=== PATIENT | female | born 1955 | race African-American/Black ===

== ENCOUNTER 2019-03-17 05:41 | Emergency (ER) | payer OTHER, MEDICARE ==
[~2019-03-17] VITALS: Ht 172.7 cm; Wt 122.5 kg
--- NOTE | 2019-03-17 06:22 | PHYS DOC ---
Past Medical History Additional Past Medical Histor: sleep apnea Past Surgical History: Cholecystectomy Additional Past Surgical Histo: LEFT ROTATOR CUFF,PART. THYROIDECTOMY Smoking: Cigarettes (The patient is a nonsmoker.) Alcohol Use: Rarely Drug Use: None Adult General Chief Complaint Chief Complaint: DIZZY/LIGHT HEADED HPI HPI Patient is a 63-year-old female who presents to the emergency department for evaluation. She states that yesterday morning, she began experiencing dizziness. She describes the dizziness as a sense of rotation, and is present only when laying flat. Position changes, or going from a laying to a sitting position does not affect the patient's symptoms. She denies any headache, any pain, any vision changes, any hearing changes, tinnitus, numbness, or weakness. She took a meclizine [id number] about an hour and a half ago, with some improvement in her symptoms at this time. There are no other alleviating or exacerbating factors to her symptoms. Review of Systems Review of Systems Constitutional: Denies fever or chills [] Eyes: Denies change in visual acuity, redness, or eye pain [] HENT: Denies nasal congestion or sore throat [] Respiratory: Denies cough or shortness of breath [] Cardiovascular: The patient denies any shortness of breath, chest pain, palpitations, or orthopnea [] GI: Denies abdominal pain, nausea, vomiting, bloody stools or diarrhea [] : Denies dysuria or hematuria [] Musculoskeletal: Denies back pain or joint pain [] Integument: Denies rash or skin lesions [] Neurologic: Denies headache, focal weakness or sensory changes [] Endocrine: Denies polyuria or polydipsia [] All other systems were reviewed and found to be within normal limits, except as documented in this note. Current Medications Current Medications Current Medications Medications (Trade) Dose Ordered Sig/Geno Start Time Stop Time Status Last Admin Dose Admin Lorazepam (Ativan Inj) 0.5 mg 1X ONCE 03/17/19 06:30 03/17/19 06:31 DC 03/17/19 06:41 0.5 MG Sodium Chloride 1,000 ml @ 1,000 mls/hr Q1H 03/17/19 06:30 03/17/19 07:29 DC 03/17/19 06:41 1,000 MLS/HR Allergies Allergies Allergies Coded Allergies Type Severity Reaction Last Updated Verified No Known Drug Allergies 12/14/14 No Physical Exam Physical Exam PHYSICAL EXAM: CONSTITUTIONAL: Well developed, well nourished HEAD: normocephalic, atraumatic EENT: PERRL, EOMI. there is no nystagmus. Conjunctivae normal color, sclerae non -icteric; moist mucous membranes. Tympanic membranes are normal bilaterally. NECK: Supple, non-tender; no meningismus. LUNGS: Lungs CTA, breathing even and unlabored. Normal air movement. HEART: Regular rate and rhythm, no murmur CHEST: No deformity; non-tender ABDOMEN: The abdomen is soft, and non-tender, no masses or bruits. EXTREM: Normal ROM; no deformity, no calf tenderness. Normal pulses palpable in all extremities. There is no pedal edema. SKIN: No rash; no diaphoresis NEURO: Alert; normal speech and cognition; CN's grossly intact; strength grossly intact without focal deficit. Sensation is intact in all extremities. Fiotqi-fzzk-eecfkh and heel cristobal testing is normal. Visual bah are intact by confrontation. BACK: No CVA TTP. Current Patient Data Vital Signs Vital Signs Date Time Temp Pulse Resp B/P (MAP) Pulse Ox O2 Delivery O2 Flow Rate FiO2 03/17/19 06:49 68 98 03/17/19 05:45 98.1 17 164/94 (117) Room Air 98.1 Lab Values Laboratory Tests Test 03/17/19 06:25 03/17/19 06:48 Sodium Level 142 mmol/L (136-145) Potassium Level 3.8 mmol/L (3.5-5.1) Chloride Level 107 mmol/L (98-107) Carbon Dioxide Level 27 mmol/L (21-32) Anion Gap 8 (6-14) Blood Urea Nitrogen 11 mg/dL (7-20) Creatinine 1.1 mg/dL (0.6-1.0) H Estimated GFR (Cockcroft-Gault) 60.3 BUN/Creatinine Ratio 10 (6-20) Glucose Level 86 mg/dL (70-99) Calcium Level 9.1 mg/dL (8.5-10.1) Total Bilirubin 0.4 mg/dL (0.2-1.0) Aspartate Amino Transferase (AST) 13 U/L (15-37) L Alanine Aminotransferase (ALT) 19 U/L (14-59) Alkaline Phosphatase 65 U/L (46-116) Troponin I Quantitative < 0.017 ng/mL (0.000-0.055) Total Protein 7.3 g/dL (6.4-8.2) Albumin 3.7 g/dL (3.4-5.0) Albumin/Globulin Ratio 1.0 (1.0-1.7) Thyroid Stimulating Hormone (TSH) 2.617 uIU/mL (0.358-3.74) Free Thyroxine 1.00 ng/dL (0.76-1.46) White Blood Count 6.4 x10^3/uL (4.0-11.0) Red Blood Count 4.92 x10^6/uL (3.50-5.40) Hemoglobin 13.0 g/dL (12.0-15.5) Hematocrit 39.3 % (36.0-47.0) Mean Corpuscular Volume 80 fL (79-100) Mean Corpuscular Hemoglobin 26 pg (25-35) Mean Corpuscular Hemoglobin Concent 33 g/dL (31-37) Red Cell Distribution Width 13.7 % (11.5-14.5) Platelet Count 311 x10^3/uL (140-400) Neutrophils (%) (Auto) 58 % (31-73) Lymphocytes (%) (Auto) 27 % (24-48) Monocytes (%) (Auto) 8 % (0-9) Eosinophils (%) (Auto) 7 % (0-3) H Basophils (%) (Auto) 1 % (0-3) Neutrophils # (Auto) 3.7 x10^3/uL (1.8-7.7) Lymphocytes # (Auto) 1.7 x10^3/uL (1.0-4.8) Monocytes # (Auto) 0.5 x10^3/uL (0.0-1.1) Eosinophils # (Auto) 0.4 x10^3/uL (0.0-0.7) Basophils # (Auto) 0.0 x10^3/uL (0.0-0.2) Laboratory Tests 03/17/19 06:48 Laboratory Tests 03/17/19 06:25 EKG EKG []Normal sinus rhythm at a rate of 83 beats for minute, left axis deviation, normal intervals. There are no acute ischemic ST/T changes Radiology/Procedures Radiology/Procedures PROCEDURE: CT HEAD WO CONTRAST INDICATION: Dizziness COMPARISON: None. TECHNIQUE: Axial CT images obtained through the head without intravenous contrast. One or more of the following individualized dose reduction techniques were utilized for this examination: 1. Automated exposure control; 2. Adjustment of the mA and/or kV according to patient size; 3. Use of iterative reconstruction technique. FINDINGS: No intracranial hemorrhage. No midline shift. Basal cisterns patent. Ventricles and sulci are unremarkable. No acute osseous abnormality. Orbits and paranasal sinuses unremarkable. IMPRESSION: * No acute intracranial hemorrhage. * Scattered foci of low density of the white matter. Nonspecific but can be seen with chronic small vessel ischemic disease. This is a common finding. [] Course & Med Decision Making Course & Med Decision Making Pertinent Labs and Imaging studies reviewed. (See chart for details) []7:40 AM: The patient's condition remained stable, she is feeling better, her symptoms have resolved, and her gait is stable. I discussed test results, the need for close follow-up, and return precautions. Dragon Disclaimer Dragon Disclaimer This electronic medical record was generated, in whole or in part, using a voice recognition dictation system. Departure Departure Impression: Primary Impression: Dizziness Disposition: 01 HOME, SELF-CARE Condition: STABLE Referrals: BRI LOU (PCP) ROSA SIMS MD Patient Instructions: Dizziness, Vertigo Additional Instructions: Continue taking the meclizine 25 mg every 6 hours as needed for dizziness. Return to medical care for any new or worsening symptoms, development of vision changes, headache, numbness, weakness, or any other concerning symptoms. KATTY PATEL MD Mar 17, 2019 06:22
[2019-03-17] MEDS ORDERED: IV NORMAL SALINE 1000ML BAG 1,000 ML IV SCH (06:30)
--- NOTE | 2019-03-17 06:53 | RAD ---
INDICATION: Dizziness COMPARISON: None. TECHNIQUE: Axial CT images obtained through the head without intravenous contrast. One or more of the following individualized dose reduction techniques were utilized for this examination: 1. Automated exposure control; 2. Adjustment of the mA and/or kV according to patient size; 3. Use of iterative reconstruction technique. FINDINGS: No intracranial hemorrhage. No midline shift. Basal cisterns patent. Ventricles and sulci are unremarkable. No acute osseous abnormality. Orbits and paranasal sinuses unremarkable. IMPRESSION: * No acute intracranial hemorrhage. * Scattered foci of low density of the white matter. Nonspecific but can be seen with chronic small vessel ischemic disease. This is a common finding. Electronically signed by: Quoc King MD (03/17/2019 6:50 AM) [id number]
[2019-03-17 07:07] LABS: CALCIUM 9.1 mg/dL (8.5-10.1); CREATININE 1.1 mg/dL (0.6-1.0); GFR 60.3; POTASSIUM 3.8 mmol/L (3.5-5.1)
[2019-03-17 07:08] LABS: BASO % 1 % (0-3); EOS # 0.4 x10^3/uL (0.0-0.7); EOS % 7 % (0-3); HEMATOCRIT 39.3 % (36.0-47.0); LYMPH # 1.7 x10^3/uL (1.0-4.8); LYMPH % 27 % (24-48); MEAN CORPUSCULAR HEMOGLOBIN 26 pg (25-35); MEAN CORPUSCULAR HGB CONC 33 g/dL (31-37); MEAN CORPUSCULAR VOLUME 80 fL (79-100); MONO # 0.5 x10^3/uL (0.0-1.1); MONO % 8 % (0-9); NEUT # 3.7 x10^3/uL (1.8-7.7); NEUT % 58 % (31-73); PLATELET COUNT 311 x10^3/uL (140-400); RED BLOOD COUNT 4.92 x10^6/uL (3.50-5.40); RED CELL DISTRIBUTION WIDTH 13.7 % (11.5-14.5); WHITE BLOOD COUNT 6.4 x10^3/uL (4.0-11.0)
[2019-03-17 07:12] LABS: ALBUMIN 3.7 g/dL (3.4-5.0); TOTAL BILIRUBIN 0.4 mg/dL (0.2-1.0); TOTAL PROTEIN 7.3 g/dL (6.4-8.2)
--- NOTE | 2019-03-17 07:14 | EKG ---
[facility] [address] [place] [address] Test Date: 2019-03-17 Test Time: 05:55:07 Pat Name: MORELIA VERDUZCO Department: Room: Gender: F Seo Intern: : 1955 Requested By: KATTY PATEL Order Number: [id number] Reading MD: Beka Mckenzie MD Measurements Intervals [place] Rate: 82 P: 54 RI: 150 QRS: -18 QRSD: 80 T: 4 QT: 370 QTc: 435 Interpretive Statements SINUS RHYTHM LAD Electronically Signed On 03-17-2019 13:26:52 [employer] by Beka Mckenzie MD
[2019-03-17 07:19] VITALS: BP 147/81
[2019-03-17 07:20] LABS: THYROID STIM HORMONE (TSH) 2.617 uIU/mL (0.358-3.74)
== END 2019-03-17 07:43 | disposition home or self-care (01) ==
LOC: ER 05:41
DX: R42 Dizziness and giddiness (principal); G47.30 Sleep apnea, unspecified
CPT/HCPCS: 36415; 70450; 80053; 84439; 84443; 84484; 85025; 93005; 96361; 96374; 99285; J2060; J7030